=== PATIENT | male | born 1960 | race African-American/Black ===

== ENCOUNTER 2016-05-22 04:48 | Emergency (ER) | payer OTHER ==
[~2016-05-22 04:48] MED LIST: ACETAMINOPHEN PO; ALPRAZOLAM PO; AMLODIPINE BESYL5 MG PO; ASPIRIN EC81 M1 PO; ATARAX PO; AUGMENTIN PO; B12 5,000 MCG1 EACH PO; BACTRIM DS TABL1 TA1 PO; BACTRIM DS TABL1 TAB PO; BENZONATATE PO; BLOOD PRESSURE; CERTAGEN PO; CLARITIN10 M2 PO; DESYREL100 MG PO; ESCITALOPRAM OX10 MG PO; FIORICET 50-321 EACH PO; FISH OIL 1,0001 CAP PO; FLEXERIL10 MG PO; FLOMAX0.4 MG PO; FLONASE16 GM; FOLIC ACID PO; FOLIC ACID1 MG PO; GLUCOPHAGE500 M1 PO; GLUCOPHAGE500 MG PO; GLUCOPHAGE850 MG PO; IBUPROFEN800 MG PO; KEFLEX PO; LEVAQUIN PO; LISINOPRIL PO; LISINOPRIL10 MG PO; LOPRESSOR PO; MAXZIDE 37.5 M1 EACH PO; MEDROL4 MG/DOSE- PO; METFORMIN HCL1000 M1 PO; METFORMIN HCL500 M1 PO; METFORMIN HCL850 MG PO; METFORMIN PO; METOPROLOL SUCC25 MG PO; METOPROLOL TAR25 MG PO; MULTIVITAMINS1 EAC2 PO; NAPROSYN500 MG PO; NEURONTIN300 MG PO; NIFEREX-150150 MG PO; NORCO 5/325 TAB1 TAB PO; NORVASC PO; NORVASC10 MG PO; ORAL DIABETIC MED; OXYCODONE-ACET1 EAC1 PO; OXYCONTIN 20MG20 M1 PO; PERCOCET 10-651 EACH PO; PERCOCET 5-3251 TAB PO; PERCOCET 5/321 UDTAB PO; PERCOCET 51 UDTAB 5/ PO; PERCOCET 7.5-31 EACH PO; PERCOCET PO; PERCOCET10 PO; PERCOCET5/325 PO; PHENERGAN PO; PHENERGAN25 MG PO; PREDNISONE PO; PRILOSEC PO; PROVERA PO; ROXICODONE5 MG PO; SENNA PO; SILVADENE TOP; TOPROL XL50 MG PO; ULTRAM PO; VIT E PO; VOLTAREN75 MG PO; ZITHROMAX1 G/PKT PO; ZITHROMAX500 MG PO; ZOCOR20 MG PO; ZOFRAN ODT4 MG/UDTAB PO; ZOFRAN PO; ZOFRAN2 MG/M1 PO; ZOFRAN8 MG PO; ZOFRANODT PO; [UNRECOGNIZED DRUG - OTHER]; [UNRECOGNIZED DRUG - OTHER]
[2016-05-22 05:12] LABS: BASOPHIL# 0.1 X10e3 (0-0.3); BASOPHIL% 0.6 % (0-2.5); EOSINOPHIL# 0.2 X10e3 (0-0.7); EOSINOPHIL% 1.6 % (0.0-7.0); HEMATOCRIT 33.9 % (38.0-50.0); HEMOGLOBIN 11.3 gm/dL (13.0-16.0); LYMPHOCYTE# 2.1 X10e3 (1.0-3.5); LYMPHOCYTE% 17.6 % (17.0-45.0); MEAN CELL VOLUME 80.9 FL (83-96); MEAN CORPUSCULAR HEMOGLOBIN 26.9 PG (28-34); MEAN CORPUSCULAR HGB CONC 33.3 g/dL (30-36); MEAN PLATELET VOLUME 8.1 FL (6.5-11.5); MONOCYTE% 8.9 % (3.0-12.0); NEUTROPHIL# 8.3 X10e3 (1.5-7.1); NEUTROPHIL% 71.3 % (40-75); PLATELET COUNT 261 X10e3 (140-420); RED BLOOD COUNT 4.19 X10e (3.90-5.60); RED CELL DISTRIBUTION WIDTH 16.7 % (11.0-15.5); RETICULOCYTE 2.8 % (0.5-2.8); WHITE BLOOD COUNT 11.7 X10e3 (4.0-10.5)
[2016-05-22 05:13] LABS: DIFF IND NO
[2016-05-22 05:49] LABS: BLOOD UREA NITROGEN 18 mg/dL (9-23); CARBON DIOXIDE 27 mmol/L (22-31); CHLORIDE 108 mmol/L (100-111); CREATININE SERUM 0.8 mg/dL (0.6-1.4); GLOM FILT RATE Estimated ABOVE60 mL/min (>60); GLUCOSE FASTING 120 mg/dL (70-110); POTASSIUM 3.9 mmol/L (3.5-5.1); SODIUM 142 mmol/L (135-145)
== END 2016-05-22 08:24 | disposition home or self-care (01) ==
LOC: CED 04:48
PROVIDERS: Emergency Medicine
DX: D57.1 Sickle-cell disease without crisis (principal); E11.9 Type 2 diabetes mellitus without complications; I10 Essential (primary) hypertension; Z79.899 Other long term (current) drug therapy
CPT/HCPCS: 36415; 80048; 85025; 85044; 96361; 96374; 96376; 99284; J1170; J1885; J2270

== ENCOUNTER 2016-05-22 09:40 | Emergency (ER) | payer OTHER ==
--- NOTE | ~2016-05-22 | ER ---
Unit #: [id number] #: [id number] Patient: VIVIANA MARQUEZ [id number] [address] [place], [place] [address] [id number] E MR#: [id number] NAME: VIVIANA MARQUEZ ROOM: Sex: M Age: 55 : 1960 Service Date: 05/22/2016 Attending Physician: Kunal Castaneda M.D. Primary Care Physician: No Primary Care Physician EMERGENCY DEPT PHYSICIAN NOTE Please see the written T-sheet from this encounter and the previous encounter on the same date for the full details of the patient's emergency department visit. Mr. Marquez is a 55-year-old man with chronic pain issues, in pain management. 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 Additionally, the patient states a history of sickle cell anemia and has been seen in the past for pain which he attributes to a sickle cell crisis. Reviewing previous records, I shows that the patient has been admitted to our facility multiple times in the past, most often associated with pain related complaints. He has been consulted on by orthopedics, hematology/oncology multiple times in the past. The most recent visit in our system is from January 2016, in which the patient was initially admitted for right hip and right leg pain that he attributed to a sickle cell crisis. According to that discharge summary, hematology/oncology was unconvinced of a sickle cell crisis and felt the pain was more likely related to chronic pain issues associated with his right hip. He was evaluated by orthopedics at that time and followup was supposedly scheduled for the patient. They adjusted his pain medications and he was suitable for discharge. Looking through previous emergency department visits, the patient has been seen multiple times in the past almost exclusively for some pain related complaint. As stated previously, the patient's most recent visit was this morning for a reported sickle cell crisis involving again his chronic right hip pain. The patient was initially evaluated this morning by another provider who cain labs to look for evidence of a sickle cell crisis as well as establish an IV and give the patient saline and two separate doses of IV Dilaudid. Apparently, the previous provider discussed the case with him, assured him that the labs were within normal limits today, and advised him to follow up with his licensed clinician, oncologist as soon as possible while continuing his chronic home pain medication. When the nurse went to discharge the patient, he became very upset stating that his pain had not been adequately treated and managed by the two doses of IV Dilaudid. It was explained to the patient that the provider who had seen him previously had already left and that he was felt, in that physician's opinion, to be suitable for discharge. The patient was very unwilling to accept this stating that he was unable to walk due to his pain and wanted more IV pain medication. They explained to him that that was not possible as his provider was no longer here. However, if he wished to be seen for this issue again, he was welcome to sign into the emergency department for a new visit. Indeed, the patient decided that he wished to be seen again and signed into the emergency department complaining of the same right hip Unit #: [id number] #: [id number] Patient: VIVIANA MARQUEZ pain. I evaluated the patient and discussed the previous visit lab results indicating that it did not appear that the patient was in a sickle cell pain crisis. At this, the patient stated that he wasn't certain that he was in a pain crisis, that he had also mentioned to the triage nurse that he had chronic pain associated with avascular necrosis of his right hip, and he suspected that was probably the reason that he was having so much pain. I reassured the patient that I would be happy to address this complaint by getting an x-ray to assure that there was no new finding or anything concerning that was contributing to an exacerbation of his pain as well as give him additional pain medication. However, I informed the patient, given the labs from the previous visit, and if there were no acute findings on the hip x-ray, that likely this was just an exacerbation of chronic pain and would not be appropriate for admission to this facility. At this, the patient became very agitated and stated that was the only reason that he was here because his pain was so severe that he was having extreme difficulty with walking. However, the patient did note that he walked here from his residence which is close to the hospital as well as being noted by staff members that he was walking around his room without difficulty. I reassured the patient to my commitment to work up his complaint and to treat him with medicines that I thought appropriate for his pain and, at this time, pain medication is ordered as well as an x-ray to address his complaint. He will be re-evaluated after his most recent doses of pain medication but, as I said to the patient, if no new findings exist, he will be referred back to his primary care physician and/or his pain management physician for adjustment of his pain medicines should they deem that appropriate. Dictated by... Natalie Waite/colin TD: 05/22/2016 10:44 JOB #: [id number] EMERGENCY DEPT PHYSICIAN NOTE X Kunal Castaneda MD X EMERGENCY DEPARTMENT REPORT
--- NOTE | ~2016-05-22 | CR151 ---
[facility] A Service of [facility] RADIOLOGY TEXT RESULTS PATIENT: VIVIANA LEE LOCATION: [facility] : 56 UNIT #: [id number] AGE: [address]: Kunal Castaneda MD SEX: M ORDER DR: [id number] [facility] [address] [facility] [place], [place] [address] [id number] E MR#: [id number] Acc #: [id number] NAME: VIVIANA LEE : 1960 SEX: M STUDY DATE/TIME: 05/22/2016 9:34 UNIT: [facility] ROOM: STUDY DESCRIPTION: CR Hip Min 2 Views Rt Attending Physician: Kunal Castaneda M.D. Ordering Physician: Kunal Castaneda M.D. Primary Care Physician: Primary Care Physician No MEDICAL IMAGING REPORT This report is preliminary unless electronic signature is present EXAM Right hip, 05/22/2016 COMPARISON 01/27/2016 HISTORY Pain in right hip for a couple of days. FINDINGS AP and lateral views of the right hip were obtained. There is an AP view of the pelvis as well. There is some sclerosis in the subchondral portions of each hip consistent with avascular necrosis and this was also seen on MRI 01/27/2016. The margins are normal without evidence of collapse. The joint spaces are normal. IMPRESSION Based on the prior MRI, this patient appears to have avascular necrosis of the femoral heads bilaterally and there is stable sclerosis in those regions as compared with the study in January. There is no collapse or loss of the joint space at this time. Otherwise the study is normal. Dictated by... Eric Curry M.D. THIS IS AN ELECTRONICALLY VERIFIED REPORT Eric Curry M.D. at 05/22/2016 12:18 PM LETY/brittney TD: 05/22/2016 11:05 JOB #: [id number] [facility] A Service [facility] RADIOLOGY TEXT RESULTS PATIENT: VIVIANA LEE LOCATION: [facility] : 56 UNIT #: [id number] AGE: [address]: Kunal Castaneda MD SEX: M ORDER DR: MEDICAL IMAGING REPORT COPY
== END 2016-05-22 10:43 | disposition home or self-care (01) ==
LOC: CED 09:40
DX: G89.29 Other chronic pain (principal); M25.551 Pain in right hip; E11.9 Type 2 diabetes mellitus without complications; I10 Essential (primary) hypertension; Z79.899 Other long term (current) drug therapy
CPT/HCPCS: 73502; 96372; 99283

== ENCOUNTER 2016-06-17 09:16 | Emergency (ER) | payer OTHER ==
[2016-06-17 10:32] LABS: BASOPHIL# 0.1 X10e3 (0-0.3); DIFF IND NO; EOSINOPHIL# 0.2 X10e3 (0-0.7); EOSINOPHIL% 1.9 % (0.0-7.0); HEMATOCRIT 34.7 % (38.0-50.0); HEMOGLOBIN 11.6 gm/dL (13.0-16.0); LYMPHOCYTE# 3.3 X10e3 (1.0-3.5); LYMPHOCYTE% 25.1 % (17.0-45.0); MEAN CORPUSCULAR HEMOGLOBIN 26.8 PG (28-34); MEAN CORPUSCULAR HGB CONC 33.5 g/dL (30-36); MEAN PLATELET VOLUME 8.3 FL (6.5-11.5); MONOCYTE# 1.2 X10e3 (0-1.0); MONOCYTE% 9.5 % (3.0-12.0); NEUTROPHIL# 8.1 X10e3 (1.5-7.1); NEUTROPHIL% 62.5 % (40-75); PLATELET COUNT 277 X10e3 (140-420); RED BLOOD COUNT 4.34 X10e (3.90-5.60); RED CELL DISTRIBUTION WIDTH 17.2 % (11.0-15.5); RETICULOCYTE 3.8 % (0.5-2.8)
[2016-06-17 11:00] LABS: ALBUMIN SERUM 4.6 g/dL (3.5-5.0); BILIRUBIN,TOTAL 1.1 mg/dL (0.2-2.0); CREATININE SERUM 0.8 mg/dL (0.6-1.4); POTASSIUM 4.1 mmol/L (3.5-5.1); PROTEIN TOTAL SERUM 7.7 g/dL (6.0-8.3)
== END 2016-06-17 13:21 | disposition home or self-care (01) ==
LOC: CED 09:16
PROVIDERS: Nurse Practitioner
DX: D57.00 Hb-SS disease with crisis, unspecified (principal); M25.512 Pain in left shoulder; I10 Essential (primary) hypertension; E11.9 Type 2 diabetes mellitus without complications; Z87.891 Personal history of nicotine dependence
CPT/HCPCS: 36415; 80053; 85025; 85044; 96361; 96374; 96375; 96376; 99284; J1170; J1885; J2405

== ENCOUNTER 2016-06-23 13:17 | Inpatient (IN) | payer OTHER ==
--- NOTE | ~2016-06-23 | DS ---
Unit #: [id number] #: [id number] Patient: VIVIANA LEE [id number] [address] [address] [id number] I MR#: [id number] NAME: VIVIANA LEE ROOM: [facility] Age: 55 Sex: M Admission Date: 06/23/2016 : 1960 Discharge Date: 07/01/2016 Attending Physician: Bj Larson M.D. Primary Care Physician: Guy Hawkins M.D. DISCHARGE SUMMARY DISCHARGE DIAGNOSES 1. Sickle cell pain crisis. 2. Community-acquired pneumonia. 3. Sepsis. 4. Type 2 diabetes. 5. Acute hypoxic respiratory failure. HOSPITAL COURSE The patient is a 55-year-old male with sickle cell, who presented to [facility] Emergency Department on the with complaint of low-back pain. He was noted to have oxygen saturations in the 80s as well. The patient was started on IV pain medication and then oral medications were added for his sickle cell pain crisis. IV antibiotics and oxygen for his pneumonia were started as well. The patient's procalcitonin was followed and when it dropped and the patient seemed to no longer benefit from antibiotics. These were stopped. Pain medication continued for his sickle cell crisis, however. Over the course of the hospitalization, the patient's hemoglobin fell from 11.7 to 8.6. His reticulocyte count was initially measured at 4.9 but was 7 the day prior to discharge. Given improvement of his hemoglobin and increase of his reticulocyte count, the patient has been deemed appropriate for discharge. The patient states his pain has improved. DISCHARGE MEDICATIONS 1. Glucophage 850 mg p.o. daily. 2. Norvasc 10 mg daily. 3. Metoprolol tartrate 50 mg p.o. daily. 4. Ibuprofen 800 mg p.o. b.i.d. as needed for pain. 5. Percocet 10/325 as needed. FOLLOWUP The patient should followup with his primary care provider at the earliest available appointment. Dictated by... Bj Larson M.D. [facility]/ Unit #: [id number] #: [id number] Patient: VIVIANA LEE TD: 07/02/2016 09:57 JOB #: [id number] DISCHARGE SUMMARY Page 1 of 1 X Bj Larson MD DISCHARGE SUMMARY
--- NOTE | ~2016-06-23 | CO ---
Unit #: [id number] #: [id number] Patient: VIVIANA MARQUEZ [id number] [address] [address] [id number] I MR#: [id number] NAME: VIVIANA MARQUEZ ROOM: 324 Age: 55 Sex: M Admission Date: 06/23/2016 : 1960 Attending Physician: Bj Larson M.D. Primary Care Physician: Guy Hawkins M.D. Consultation Date: 06/24/2016 CONSULTATION REPORT HISTORY OF PRESENT ILLNESS Viviana Marquez is a 55-year-old male, admitted to the emergency room with a chief complaint of dyspnea and chest pain. The patient has a history of sickle cell anemia and was doing well until about a week prior to admission when he noted onset of progressively worsening shortness of breath, diffuse pain to the anterior chest, and mild nonproductive cough. He denied fever, chills, or hemoptysis. He presented to the emergency room on 06/23/2016 with [address] A CT scan of his chest was done that showed bilateral densities, primarily linear in the lne-ah-eoxyt lung zones consistent either with atelectasis or pneumonia. He was admitted with sickle cell crisis and acute chest syndrome. Since admission, his highest temperature has been 99.4. PAST MEDICAL HISTORY Remarkable for hypertension, diabetes mellitus, dyslipidemia, sickle cell disease, and a previous cerebrovascular accident. PAST SURGICAL HISTORY Back surgery on his lower spine, incision and drainage of perirectal abscess, bilateral shoulder surgery, and circumcision. SOCIAL HISTORY The patient lives alone. Smokes about one-half pack of cigarettes daily. Denied alcohol or drug abuse. FAMILY HISTORY Remarkable for hypertension and diabetes. ALLERGIES None. HOME MEDICATIONS Include metformin, ibuprofen, Percocet, Norvasc, and metoprolol. REVIEW OF SYSTEMS GENERAL: He denied fever, chills, or recent change in weight. ENT: Denied nasal or sinus congestion or epistaxis. NECK: No pain in cervical spine. No thyroid enlargement. PULMONARY: Anterior chest discomfort and dyspnea. Nonproductive cough. CARDIOVASCULAR: Denied midsternal chest pain, ankle edema, or orthopnea. GI: Denied nausea, vomiting, or diarrhea. Unit #: [id number] #: [id number] Patient: VIVIANA MARQUEZ : Denied dysuria or hematuria. SKIN: No rash or nodules. LYMPH: No adenopathy in the neck, cervical, or axillary areas. NEUROLOGIC: No loss of consciousness, seizures, or syncope. ENDOCRINE: Denied cold intolerance, polyuria, or polydipsia. PHYSICAL EXAMINATION GENERAL: He appeared obese black male, in mild distress. VITAL SIGNS: On admission, temperature 97.6, pulse 86, respirations 24, and blood pressure was 178/78. In the emergency department, his oxygen saturations has dropped into the 80s and he was placed on oxygen. HEENT: Head, normocephalic without evidence of trauma. Eyes; pupils are equal, round, and reactive to light and accommodation. Sclerae anicteric. Conjunctivae normal. Ear, nose, and throat; nostrils open and patent. Tympanic membranes appeared normal. Oral cavity is unremarkable. No thrush. NECK: Supple without adenopathy or jugular venous distention. LUNGS: Clear to auscultation and percussion. CARDIAC: PMI poorly localized. Heart sounds distant. No murmurs or gallops. ABDOMEN: Soft, nontender, and obese. No hepatosplenomegaly or masses. Bowel sounds normal. GENITALIA: Normal male. RECTAL: Deferred. EXTREMITIES: without clubbing, cyanosis, or edema. SKIN: Warm and dry with normal capillary refill. LYMPH: No adenopathy in neck, cervical, or axillary areas. PSYCH: Awake, alert, oriented x3. He did not seem particularly anxious or depressed. MUSCULOSKELETAL: Equal muscular development bilaterally. No joint swelling or erythema. Strength not tested. NEUROLOGIC: Cranial nerves II through XII intact. Sensory normal to pinprick and touch. Deep tendon reflexes were 1+ in both upper and lower extremities. Babinski negative. DIAGNOSTIC STUDIES LABORATORY RESULTS: On admission, his white blood cell count elevated at 18,700, hemoglobin 11.7 g, and hematocrit 36%. INR 1. Lactic acid borderline elevated at 2.5. IMPRESSION 1. Sickle cell crisis. 2. Acute chest syndrome with low-grade fever and pulmonary infiltrates on chest x-ray, dyspnea, and hypoxemia. 3. Elevated lactate, possible sepsis. 4. Hypertension. 5. Diabetes mellitus. RECOMMENDATIONS Agree with antibiotics. Suggest azithromycin, cefepime, oxygen, and incentive spirometry. Check of blood gases would be appropriate. Further recommendations to follow. Dictated by... Natalie Mauricio/irma TD: 06/25/2016 17:23 Unit #: [id number] #: [id number] Patient: VIVIANA MARQUEZ JOB #: [id number] CONSULTATION REPORT Page 1 of 1 X Pepe Rivera MD X CONSULTATION REPORT
--- NOTE | ~2016-06-23 | EKG ---
PATIENT: VIVIANA LEE UNIT #: [id number] Ventricular Rate: 89 BPM Atrial Rate: 89 BPM P-R Interval: 190 ms QRS Duration: 100 ms Q-T Interval: 394 ms QTC Calculation(Bezet): 479 ms P [place]: 56 degrees Calculated R [place]: -26 degrees Calculated T [place]: -61 degrees Diagnosis Line: Normal sinus rhythm Diagnosis Line: ST and T wave abnormality, consider anterolateral Diagnosis Line: ischemia Diagnosis Line: Prolonged QT Diagnosis Line: Abnormal ECG Diagnosis Line: When compared with ECG of 29-APR-2015 12:21, Diagnosis Line: Inverted T waves have replaced nonspecific T wave Diagnosis Line: abnormality in Lateral leads Diagnosis Line: Confirmed by PAOLA CHAVEZ MD ([id number]) on 06/26/2016 Diagnosis Line: 10:51:09 PM INTERPRETING MD: KATHY DRAKE
--- NOTE | ~2016-06-23 | HP ---
Unit #: [id number] #: [id number] Patient: VIVIANA LEE [id number] [address] [place], [place] [address] [id number] I MR#: [id number] NAME: VIVIANA LEE ROOM: [address] Age: 55 Sex: M Admission Date: 06/23/2016 : 1960 Attending Physician: Bj Larson M.D. Primary Care Physician: Guy Hawkins M.D. HISTORY AND PHYSICAL CHIEF COMPLAINT Low back pain. HISTORY OF PRESENT ILLNESS The patient is a 55-year-old male with past medical history of chronic pain, sickle cell disease, avascular necrosis of the shoulders and hip, cerebrovascular accident, hypertension, diabetes and BPH who presented to the emergency department for evaluation of the above. The patient states that he was in his usual state of health until this morning around 2 a.m. when he woke from sleep with worsening low back pain. He states the pain is in his lower back. He describes it as "sharp." It radiates to his hips. He states that it is similar to when he has had a pain crisis in the past. He denies any fever. He has not had any cough. He has had some shortness of breath. He denies any abdominal pain. He states that his appetite has been good. He has had one bout of vomiting but no diarrhea. He denies any bowel or bladder incontinence. No (1) . Upon arrival in the emergency department, the patient's oxygen saturation was 100% on room air. Oxygen saturation apparently dropped to the 80s during the course of his evaluation in the emergency department. Chest x-ray showed bibasilar atelectasis versus infiltrate. CT of the chest PE protocol was limited due to poor bolus timing and other factors but showed no central PE. There are patchy densities concerning for atelectasis versus infiltrate. Lactic acid is 2.5. Reticulocyte count is 4.9. Hemoglobin and hematocrit are 11.7 and 36 respectively. He was given vancomycin, Zosyn and tobramycin in the emergency department, as well as a total of 12 mg of Dilaudid, 1 mg of Ativan and 25 mg of Benadryl. He was also given a 2 liter normal saline bolus. He is being admitted to [facility] for evaluation and further treatment. PAST MEDICAL HISTORY 1. Admission to [facility] February 10 through February 15, 2016 for pain and possible sickle cell crisis. He was seen by hematology who did not think that the pain was attributed to sickle cell crisis. He was also seen by the orthopedic service that recommended outpatient followup. 2. Sickle cell anemia. The patient has seen Dr. Barry in the past but was unable to tell me who he sees as an outpatient. 3. Avascular necrosis involving bilateral shoulders, as well as bilateral femoral heads. 4. History of cerebrovascular accident with right hemianopsia and memory issues. Unit #: [id number] #: [id number] Patient: VIVIANA LEE 5. Hypertension. 6. Diabetes. 7. BPH. PAST SURGICAL HISTORY 1. Back surgery. 2. Incision and drainage of perirectal abscess. 3. Bilateral shoulder surgery. 4. Circumcision. SOCIAL HISTORY The patient lives alone. He smokes a few cigarettes daily. He denies alcohol or illicit drug use. He is on disability. FAMILY HISTORY Hypertension, diabetes. ALLERGIES None. HOME MEDICATIONS 1. Metformin 850 mg daily. 2. Ibuprofen 800 mg b.i.d. p.r.n. 3. Percocet 10 daily p.r.n. 4. Norvasc 10 mg daily. 5. Metoprolol 50 mg daily. REVIEW OF SYSTEMS A complete review of systems is negative except as indicated in the HPI. The patient states that he is in the process of seeing pain management. He was unable to tell me the name of the pain management physician. The patient does not routinely check his blood sugar. PHYSICAL EXAMINATION VITAL SIGNS: Temperature is 97.6, pulse 86, respirations 24, blood pressure 178/78, oxygen saturation 100% on room air, but as stated above, the patient's oxygen saturation dropped to the 80s during the course of his evaluation in the emergency department. GENERAL: The patient is an male who is awake and alert in no acute distress. He apparently was quite agitated on initial presentation. HEENT: The head is atraumatic. Mucous membranes are moist. NECK: Supple. Trachea is midline. CARDIOVASCULAR: Regular rate and rhythm. RESPIRATORY: Lungs are relatively clear to auscultation bilaterally with no increased work of breathing. ABDOMEN: Soft, nontender with bowel sounds present in all 4 quadrants. EXTREMITIES: Extremities are nontender with no pedal edema. NEUROLOGIC: The patient is awake and alert. He is oriented x3. He follows commands. PSYCHIATRIC: Mood and affect are normal. The patient is cooperative but apparently was agitated earlier. SKIN: Skin of examined areas is warm and dry. DIAGNOSTIC TESTS CARDIOVASCULAR: EKG shows normal sinus rhythm with a rate of 89 beats per minute. There are T wave inversions in leads V3 through V6. Unit #: [id number] #: [id number] Patient: VIVIANA LEE IMAGING: Chest x-ray shows bibasilar atelectasis versus infiltrate. CT of the chest PE protocol is limited due to multiple factors, including poor bolus timing. There is no central PE, but there are patchy densities concerning for atelectasis versus infiltrate. LABORATORY: Complete blood count notable for white blood cell count of 18.7, hemoglobin 11.7, hematocrit 36. INR is 1. Comprehensive metabolic panel notable for glucose of 246. Urinalysis notable for 250 glucose. Troponin less than 0.05. Lactic acid is 2.5. Reticulocyte count is 4.9. ASSESSMENT 1. The patient is a 55-year-old male with acute respiratory failure, hypoxic. 2. Pneumonia, community acquired. 3. The patient received vancomycin, Zosyn and tobramycin in the emergency department. 4. Sepsis with a lactic acid of 2.5. 5. Intractable pain possibly related to sickle cell crises versus avascular necrosis of hips. 6. History of sickle cell anemia. Hemoglobin is 11.7 today. It was 11.6 on June 17, 2016. Reticulocyte count is 4.9. 7. Avascular necrosis of the hips and shoulders. 8. History of cerebrovascular accident. 9. Hypertension. 10. Uncontrolled diabetes. 11. BPH. 12. Tobacco abuse. PLAN 1. Admit to intermediate level. 2. Healthy heart, consistent carb diet. 3. Normal saline at 150 mL an hour. 4. Supplemental oxygen. 5. Blood cultures x2. 6. Sputum culture and sensitivity. 7. Procalcitonin level. 8. Rocephin IV and azithromycin IV for possible pneumonia pending Dr. El's recommendations. 9. DuoNeb p.r.n. 10. Sepsis protocol with repeat lactic acid. 11. Dilaudid p.r.n. 12. Zofran p.r.n. 13. Tylenol p.r.n. 14. Serial cardiac enzymes. 15. VQ scan in the morning due to suboptimal CT of the chest PE protocol. 16. Hemoglobin A1C. 17. Low-dose sliding scale insulin with Accu-Cheks. 18. Recheck folic acid. 19. Repeat labs in the morning, including reticulocyte count. 20. SCDs for DVT prophylaxis. 21. Additional workup and consultants based on above. 22. Regarding code status, the patient is a full code. Dictated by Kari Ortiz M.D. Unit #: [id number] #: [id number] Patient: VIVIANA LEE VIRAL/beth TD: 06/24/2016 07:30 JOB #: [id number] HISTORY AND PHYSICAL Page 1 of 1 X Kari Ortiz MD X HISTORY AND PHYSICAL
--- NOTE | ~2016-06-23 | CR72 ---
[facility] A Service of [facility] & [facility] RADIOLOGY TEXT RESULTS PATIENT: VIVIANA LEE LOCATION: [facility] 324-01 : 56 UNIT #: [id number] AGE: [address]: Bj Larson MD SEX: M ORDER DR: [id number] [facility] [address] [facility]. [place], [place] [address] [id number] I MR#: [id number] Acc #: [id number] NAME: VIVIANA LEE : 1960 SEX: M STUDY DATE/TIME: 06/23/2016 13:08 UNIT: [facility] ROOM: [address] STUDY DESCRIPTION: CR Chest Single View Portable Attending Physician: Bj Larson M.D. Ordering Physician: Ada Johnson M.D. Primary Care Physician: Guy Hawkins M.D. MEDICAL IMAGING REPORT This report is preliminary unless electronic signature is present EXAM Single view of the chest INDICATION Chest pain for 1 day. Shortness of air . FINDINGS Single portable AP view of the chest is compared to 09/24/2015. Cardiac size is enlarged. There is increased density in both lung bases which probably represents some atelectasis. No pleural effusion. There is degenerative changes about both shoulders. IMPRESSION 1. Linear airspace opacities in both lung bases probably represent atelectasis. Correlate for any evidence of pneumonia. 2. Stable cardiomegaly. 1. Dictated by... Damian Patel M.D. THIS IS AN ELECTRONICALLY VERIFIED REPORT Damian Patel M.D. at 06/25/2016 2:15 PM Yanira TD: 06/24/2016 09:18 JOB #: [id number] MEDICAL IMAGING REPORT Page 1 of 1 COPY
--- NOTE | ~2016-06-23 | CO ---
Unit #: [id number] #: [id number] Patient: VIVIANA LEE [id number] [address] [address] [id number] I MR#: [id number] NAME: VIVIANA LEE ROOM: 324 Age: 55 Sex: M Admission Date: 06/23/2016 : 1960 Attending Physician: Bj Larson M.D. Primary Care Physician: Guy Hawkins M.D. CONSULTATION REPORT CHIEF COMPLAINT Sickle cell disease, bilateral lower extremity pain, avascular necrosis of bilateral femoral heads, CVA, memory problems. HISTORY OF PRESENT ILLNESS This is a 55-year-old male who has sickle cell disease. His hemoglobin has been stable. He had a CVA and he has memory problems. Today, patient came with bilateral lower extremity severe pain. Patient had a CT of the chest, PE protocol, on June 23, 2016, and there was no PE. However, there are some patchy infiltrates bilaterally which could be atelectasis or could be pneumonia. He is receiving pain medication and IV fluids and is feeling better. His antibiotics have been discontinued. His CBC showed a WBC of 18.7, hemoglobin 11.7, MCV 81, and platelets 294,000. His creatinine is 0.8. LFTs are normal. At present, he still complains of bilateral lower extremity pain. He is uncomfortable. PAST MEDICAL HISTORY 1. Sickle cell disease well controlled on folic acid supportive care. 2. Hypertension. 3. Cerebrovascular accident during 2012 and 2013 and has significant memory problems, but according to him, he is improving. 4. Back pain. PAST SURGICAL HISTORY Back surgery and some shoulder surgery. His memory is poor, and he could not recollect. ALLERGIES None. SOCIAL HISTORY He smoked one pack per day for 20 years but quit many years ago. He denies alcohol abuse. FAMILY HISTORY Negative for cancer. CURRENT MEDICATIONS 1. Dilaudid. 2. Percocet. 3. Flomax. Unit #: [id number] #: [id number] Patient: VIVIANA LEE 4. Insulin. 5. IV fluid. 6. Lopressor. 7. Norvasc. 8. Folic acid. 9. B12. PHYSICAL EXAMINATION VITAL SIGNS: Temperature 100.2, pulse 104, respiratory rate 18, O2 saturation on 2 liters 96%, and blood pressure 143/92. GENERAL: Patient is comfortable. ECOG is 0. The patient is pleasant. HEENT: Moist mucosa. Pupils equally reactive to light. Extraocular muscles intact. Sclerae anicteric. No obvious bleeding from nasal mucosa or oral mucosa. Scalp normal. Hearing normal. NECK: No JVD. No lymphadenopathy. LYMPHATIC/HEMATOLOGIC: There is no palpable adenopathy in the neck, axilla or inguinal area. CARDIOVASCULAR: S1, S2. Regular rate and rhythm. No S3 or S4. RESPIRATORY: Chest symmetrical, normal. Clear to auscultation bilaterally. No wheezes, no rales, no rhonchi. No dullness to percussion. ABDOMEN/GASTROINTESTINAL: Abdomen is soft, nontender, nondistended. No hepatosplenomegaly. EXTREMITIES: There is no clubbing, no cyanosis, no edema. No varicose veins. NEUROLOGICAL: Patient is alert, awake and oriented x3. Cranial nerves II-XII are intact. Sensory grossly intact. Motor is 4/5 in all four extremities. Gait is normal. Station is normal. Language is normal. Memory is normal. DTRs +2 in all four extremities. MUSCULOSKELETAL: No joint swelling. No bony tenderness. No muscle tenderness. SKIN: No petechiae, no rash, no ecchymosis. PSYCHIATRIC: No anxiety. No delusions or hallucinations. There is no agitation. Eye contact is normal. Affect is appropriate. There is no flight of ideas. DIAGNOSTIC STUDIES LABORATORY: As mentioned above. IMAGING: As mentioned above. ASSESSMENT AND PLAN This is a 55-year-old male who has the following active issues: 1. Sickle cell disease. This has been well controlled. He has not had any recent packed red blood cell transfusions. Will continue folic acid and B12. Will check iron studies. 2. Pain. He has significant bilateral lower extremity pain. Patient is having mild crisis and is receiving pain medication including Dilaudid, Percocet, and IV fluids. DISCUSSION Patient has some patchy infiltrates. This could be atelectasis. He is off antibiotics. Will simply monitor. Dictated by... Natalie Velásquez Unit #: [id number] #: [id number] Patient: VIVIANA LEE TD: 06/25/2016 15:43 JOB #: [id number] CONSULTATION REPORT Page 1 of 1 X Shannan Barry MD CONSULTATION REPORT
--- NOTE | ~2016-06-23 | CT16 ---
[facility] A Service of [facility] RADIOLOGY TEXT RESULTS PATIENT: VIVIANA LEE LOCATION: [facility] 324-01 : [birth year] UNIT #: [id number] AGE: [address]: Bj Larson MD SEX: M ORDER DR: [id number] [facility] [address] [place], [place] [address] [id number] I MR#: [id number] #: [id number] NAME: VIVIANA LEE : 1960 SEX: M STUDY DATE/TIME: 06/23/2016 17:13 UNIT: CEDOF ROOM: [id number] STUDY DESCRIPTION: CT Angio Chest for PE Attending Physician: Bj Larson M.D. Ordering Physician: Ada Johnson M.D. Primary Care Physician: Guy Hawkins M.D. MEDICAL IMAGING REPORT This report is preliminary unless electronic signature is present EXAM CT angiography chest for PE. HISTORY Short of air. Back pain radiating down legs. No known injury. Nausea vomiting, substernal chest pain since 06:[address] exam was performed with one or more of the following radiation dose reduction techniques: automatic exposure control, adjustment of mA and/or kV according to patient size, and iterative reconstruction. FINDINGS CT pulmonary angiography performed with intravenous administration of 80 mL Isovue-370. Three dimensional reconstructions were performed through the pulmonary arteries. Visualized thyroid unremarkable. No axillary adenopathy. No mediastinal or hilar adenopathy. Mild cardiac enlargement. No pleural effusions. Visualized portions of liver, gallbladder, spleen, pancreas, adrenal glands, kidneys notable for left upper pole renal cysts largest measuring up to 3.9 cm in diameter. No upper abdominal adenopathy. Esophagus, visualized portions of the stomach, small bowel and colon unremarkable. Pulmonary parenchyma imaged during the excretory phase of respiration given tracheal contour. Patchy and linear densities in the bilateral ozf-dx-fockl lung zones, right greater than left overall probably represent atelectasis to a large degree, given the expiratory phase imaging. Components of pneumonitis could be considered. No dense airspace consolidation is seen. No suspicious nodule. Due to timing of the contrast bolus relative to image acquisition, respiratory motion, and expiratory phase imaging, the study is markedly suboptimal for assessment of pulmonary arteries. No central pulmonary STS. [facility] A Service of [facility] RADIOLOGY TEXT RESULTS PATIENT: VIVIANA LEE LOCATION: [facility] 324-01 : [birth year] UNIT #: [id number] AGE: [address]: Bj Larson MD SEX: M ORDER DR: emboli are suggested. The proximal lobar pulmonary arteries show no indication of pulmonary embolus. From level of the segmental pulmonary arteries distally, the study is nondiagnostic. No aortic aneurysm or dissection. The great vessel origins are patent. Bony structures show no acute abnormality. Degenerative changes in the spine. IMPRESSION 1. Due to timing contrast bolus relative to image acquisition, respiratory motion artifact, and expiratory phase imaging, the study is markedly limited for assessment of pulmonary arteries. There is no indication of central pulmonary emboli to the level of the lobar arteries; but beyond the level of the lobar arteries including the segmental and subsegmental pulmonary arteries presence or absence of pulmonary emboli cannot be determined on basis of this examination. If the patient is a candidate for additional iodinated contrast material, repeat examination could be considered. Alternatively ventilation-perfusion radionuclide lung scan could be considered. 2. No aortic aneurysm or dissection. 3. As noted, images were obtained in the excretory phase of respiration. Patchy and linear densities in the gyf-ch-gkckv lung zones bilaterally right greater than left probably reflect a significant amount of atelectasis due to the expiratory phase imaging. I cannot exclude components of pneumonitis bilaterally. No dense airspace consolidation. 4. No pleural effusion or pneumothorax. 5. Mild cardiac enlargement. 6. Visualized upper abdomen notable for left renal cyst. Dictated by... Riaz Harrington M.D. THIS IS AN ELECTRONICALLY VERIFIED REPORT Riaz Harrington M.D. at 06/26/2016 6:09 PM Blas TD: 06/24/2016 13:11 JOB #: [id number] MEDICAL IMAGING REPORT Page 1 of 1 COPY
[2016-06-23 12:51] LABS: BASOPHIL# 0.1 X10e3 (0-0.3); BASOPHIL% 0.6 % (0-2.5); DIFF IND YES; EOSINOPHIL# 0.2 X10e3 (0-0.7); EOSINOPHIL% 0.8 % (0.0-7.0); HEMOGLOBIN 11.7 gm/dL (13.0-16.0); LYMPHOCYTE# 4.4 X10e3 (1.0-3.5); LYMPHOCYTE% 23.4 % (17.0-45.0); MEAN CELL VOLUME 81.9 FL (83-96); MEAN CORPUSCULAR HEMOGLOBIN 26.7 PG (28-34); MEAN CORPUSCULAR HGB CONC 32.6 g/dL (30-36); MEAN PLATELET VOLUME 8.3 FL (6.5-11.5); MONOCYTE# 1.5 X10e3 (0-1.0); MONOCYTE% 8.1 % (3.0-12.0); NEUTROPHIL# 12.5 X10e3 (1.5-7.1); NEUTROPHIL% 67.1 % (40-75); PLATELET COUNT 294 X10e3 (140-420); RED BLOOD COUNT 4.39 X10e (3.90-5.60); RED CELL DISTRIBUTION WIDTH 17.6 % (11.0-15.5); RETICULOCYTE 4.9 % (0.5-2.8); WHITE BLOOD COUNT 18.7 X10e3 (4.0-10.5)
[2016-06-23 13:00] LABS: PARTIAL THROMBOPLASTIN TIME 21.2 SECONDS (23.5-31.3); PROTHROMBIN TIME (PATIENT) 10.6 SECONDS (9.6-11.5)
[2016-06-23 13:08] LABS: NUCLEATED RED BLOOD CELL 2 /100 (0)
[2016-06-23 13:09] LABS: PLATELET ESTIMATE NORMAL (NORMAL); TARGET CELLS SL
[2016-06-23 13:24] LABS: ALBUMIN SERUM 4.6 g/dL (3.5-5.0); BILIRUBIN, DIRECT 0.2 mg/dL (0.0-0.2); BILIRUBIN,INDIRECT 1.2 mg/dL (0.0-0.9); BILIRUBIN,TOTAL 1.4 mg/dL (0.2-2.0); BUN/CREATININE RATIO 17.5; CALCIUM SERUM 9.5 mg/dL (8.4-10.2); CREATININE SERUM 0.8 mg/dL (0.6-1.4); POTASSIUM 3.5 mmol/L (3.5-5.1); PROTEIN TOTAL SERUM 7.9 g/dL (6.0-8.3)
[2016-06-23 14:29] LABS: URINE SOURCE CLEAN CATCH
[2016-06-23 14:41] LABS: URINE APPEARANCE CLEAR; URINE BILIRUBIN NEG (NEG); URINE BLOOD NEG (NEG); URINE COLOR YELLOW; URINE GLUCOSE 250 MG/DL (NEG); URINE KETONE NEG (NEG); URINE LEUKOCYTE ESTERASE NEG (NEG); URINE NITRATE NEG (NEG); URINE PROTEIN NEG (NEG); URINE SPECIFIC GRAVITY 1.015 (1.003-1.035)
[2016-06-23 14:50] LABS: CULTURE INDICATED? NO
[2016-06-23 16:54] LABS: POC - CKMB 2.6 ng/mL (0.0-7.9); POC - TROPONIN <0.05 ng/mL (<=0.05)
[2016-06-23] MEDS ORDERED: IBUPROFEN800 MG PO (17:51)
[2016-06-23] MEDS ORDERED: GLUCOPHAGE850 MG PO (17:51)
[2016-06-23] MEDS ORDERED: PERCOCET PO (17:53)
[2016-06-23] MEDS ORDERED: NORVASC10 MG PO (17:53)
[2016-06-23] MEDS ORDERED: METOPROLOL TART25 MG PO (17:54)
[2016-06-23 19:22] LABS: POC - CKMB 2.3 ng/mL (0.0-7.9); POC - TROPONIN <0.05 ng/mL (<=0.05)
[2016-06-23 22:00] LABS: %MB 1.5 % (0.0-4.0); MB 4.7 ng/ml
[2016-06-24 11:46] LABS: %MB 0.8 % (0.0-4.0); MB 4.3 ng/ml
[2016-06-25 09:20] LABS: ARTERIAL BLD GAS O2 SATURATION 92.5 % (90.0-100.0); ARTERIAL BLOOD GAS CARBOXY HB 1.8 %sat (0.0-9.0); ARTERIAL BLOOD GAS HCO3 27.7 mmol/L; ARTERIAL BLOOD GAS PCO2 42.2 mmHg (35.0-45.0); ARTERIAL BLOOD GAS PO2 65.2 mmHg (80.0-100); ARTERIAL BLOOD GAS pH 7.426 (7.350-7.450)
[2016-06-25 09:21] LABS: ARTERIAL BLOOD GAS ALLEN TEST NORMAL; ARTERIAL BLOOD GAS ART SITE RIGHT RADIAL; ARTERIAL BLOOD GAS DELIVERY NASAL CANNULA; ARTERIAL BLOOD GAS MET HB 1.1 %sat (0.0-2.0); ARTERIAL DRAW? YES
[2016-06-26 08:11] LABS: HEMATOCRIT 26.5 % (38.0-50.0); HEMOGLOBIN 9.1 gm/dL (13.0-16.0); MEAN CELL VOLUME 78.1 FL (83-96); MEAN CORPUSCULAR HEMOGLOBIN 26.9 PG (28-34); MEAN CORPUSCULAR HGB CONC 34.5 g/dL (30-36); MEAN PLATELET VOLUME 8.2 FL (6.5-11.5); RED BLOOD COUNT 3.39 X10e (3.90-5.60)
[2016-06-26 08:57] LABS: ALBUMIN SERUM 3.6 g/dL (3.5-5.0); BILIRUBIN,TOTAL 1.9 mg/dL (0.2-2.0); BUN/CREATININE RATIO 21.66; CALCIUM SERUM 8.4 mg/dL (8.4-10.2); CREATININE SERUM 0.6 mg/dL (0.6-1.4); GLOM FILT RATE Estimated 129.4 mL/min (>60); MAGNESIUM 1.7 mg/dL (1.6-3.0); POTASSIUM 3.5 mmol/L (3.5-5.1); PROTEIN TOTAL SERUM 6.6 g/dL (6.0-8.3)
[2016-06-26 09:03] LABS: FERRITIN 560 ng/mL (24-336)
[2016-06-27 07:05] LABS: HEMATOCRIT 26.2 % (38.0-50.0); HEMOGLOBIN 8.8 gm/dL (13.0-16.0); MEAN CELL VOLUME 79.8 FL (83-96); MEAN CORPUSCULAR HEMOGLOBIN 26.8 PG (28-34); MEAN CORPUSCULAR HGB CONC 33.6 g/dL (30-36); MEAN PLATELET VOLUME 8.2 FL (6.5-11.5); RED BLOOD COUNT 3.29 X10e (3.90-5.60); RED CELL DISTRIBUTION WIDTH 18.1 % (11.0-15.5); WHITE BLOOD COUNT 13.8 X10e3 (4.0-10.5)
[2016-06-27 08:01] LABS: ALBUMIN SERUM 3.6 g/dL (3.5-5.0); BILIRUBIN,TOTAL 1.8 mg/dL (0.2-2.0); CALCIUM SERUM 8.9 mg/dL (8.4-10.2); CREATININE SERUM 0.7 mg/dL (0.6-1.4); GLOM FILT RATE Estimated 121.5 mL/min (>60); MAGNESIUM 1.8 mg/dL (1.6-3.0); POTASSIUM 3.6 mmol/L (3.5-5.1); PROTEIN TOTAL SERUM 6.4 g/dL (6.0-8.3)
[2016-06-28 05:53] LABS: HEMATOCRIT 25.7 % (38.0-50.0); HEMOGLOBIN 8.6 gm/dL (13.0-16.0); MEAN CORPUSCULAR HEMOGLOBIN 26.8 PG (28-34); MEAN CORPUSCULAR HGB CONC 33.6 g/dL (30-36); MEAN PLATELET VOLUME 7.9 FL (6.5-11.5); RED BLOOD COUNT 3.21 X10e (3.90-5.60); RED CELL DISTRIBUTION WIDTH 17.9 % (11.0-15.5); WHITE BLOOD COUNT 13.8 X10e3 (4.0-10.5)
[2016-06-28 06:34] LABS: ALBUMIN SERUM 3.5 g/dL (3.5-5.0); BILIRUBIN,TOTAL 1.7 mg/dL (0.2-2.0); BUN/CREATININE RATIO 18.33; CALCIUM SERUM 8.5 mg/dL (8.4-10.2); CREATININE SERUM 0.6 mg/dL (0.6-1.4); GLOM FILT RATE Estimated 129.4 mL/min (>60); MAGNESIUM 1.8 mg/dL (1.6-3.0); POTASSIUM 3.6 mmol/L (3.5-5.1); PROTEIN TOTAL SERUM 6.3 g/dL (6.0-8.3)
[2016-06-29 05:55] LABS: HEMATOCRIT 27.2 % (38.0-50.0); HEMOGLOBIN 9.1 gm/dL (13.0-16.0); MEAN CORPUSCULAR HEMOGLOBIN 27.1 PG (28-34); MEAN CORPUSCULAR HGB CONC 33.5 g/dL (30-36); MEAN PLATELET VOLUME 8.5 FL (6.5-11.5); RED CELL DISTRIBUTION WIDTH 18.2 % (11.0-15.5); WHITE BLOOD COUNT 13.4 X10e3 (4.0-10.5)
[2016-06-29 06:04] LABS: CALCIUM SERUM 8.9 mg/dL (8.4-10.2); CREATININE SERUM 0.6 mg/dL (0.6-1.4); GLOM FILT RATE Estimated 129.4 mL/min (>60); POTASSIUM 3.7 mmol/L (3.5-5.1)
[2016-06-29 07:24] LABS: RED BLOOD COUNT 3.36 X10e (3.90-5.60)
[2016-06-30 08:45] LABS: HEMATOCRIT 27.2 % (38.0-50.0); MEAN CORPUSCULAR HGB CONC 32.9 g/dL (30-36); MEAN PLATELET VOLUME 8.4 FL (6.5-11.5); RED BLOOD COUNT 3.32 X10e (3.90-5.60); RED CELL DISTRIBUTION WIDTH 18.5 % (11.0-15.5); WHITE BLOOD COUNT 13.7 X10e3 (4.0-10.5)
[2016-06-30 09:21] LABS: BUN/CREATININE RATIO 16.25; CREATININE SERUM 0.8 mg/dL (0.6-1.4); POTASSIUM 3.8 mmol/L (3.5-5.1)
[2016-07-01 07:58] LABS: HEMOGLOBIN 9.1 gm/dL (13.0-16.0); MEAN CELL VOLUME 82.5 FL (83-96); MEAN CORPUSCULAR HEMOGLOBIN 26.7 PG (28-34); MEAN CORPUSCULAR HGB CONC 32.4 g/dL (30-36); MEAN PLATELET VOLUME 8.2 FL (6.5-11.5); RED BLOOD COUNT 3.4 X10e (3.90-5.60)
== END 2016-07-01 13:15 | disposition home or self-care (01) | DRG 193 ==
LOC: CED 13:17 → SEDOF 19:05 → CEDOF 19:53 → C3A PCU 06-24 17:36 → C4C 06-30 16:37
PROVIDERS: Emergency Medicine; General Practice; Internal Medicine; Internal Medicine Hematology; Internal Medicine Medical Oncology; Physician Assistant Medical
PROC: B32TYZZ Computerized Tomography (CT Scan) of Left Pulmonary Artery using Other Contrast (ICD-10-PCS; principal; 2016-06-23)
PROC: B32SYZZ Computerized Tomography (CT Scan) of Right Pulmonary Artery using Other Contrast (ICD-10-PCS; 2016-06-23)
DX: J18.9 Pneumonia, unspecified organism (principal); D57.00 Hb-SS disease with crisis, unspecified; J96.01 Acute respiratory failure with hypoxia; M87.851 Other osteonecrosis, right femur; E11.65 Type 2 diabetes mellitus with hyperglycemia; R65.10 Systemic inflammatory response syndrome (SIRS) of non-infectious origin without acute organ dysfunction; M87.852 Other osteonecrosis, left femur; M87.811 Other osteonecrosis, right shoulder; M87.812 Other osteonecrosis, left shoulder; J98.11 Atelectasis; Z79.84 Long term (current) use of oral hypoglycemic drugs; F17.210 Nicotine dependence, cigarettes, uncomplicated; N40.0 Benign prostatic hyperplasia without lower urinary tract symptoms; H53.461 Homonymous bilateral field defects, right side
CPT/HCPCS: 36415; 36600; 71010; 71275; 80048; 80053; 80076; 81003; 82308; 82550; 82553; 82607; 82728; 82803; 82947; 83036; 83540; 83550; 83605; 83615; 83735; 84484; 85025; 85027; 85044; 85610; 85730; 87040; 93005; 94640; 94760; 96361; 96365; 96367; 96372; 96375; 96376; 97162; 99291; G8978-GP; G8979-GP; G8980-GP; J0360; J0456; J0692; J0696; J1170; J1200; J1815; J2060; J2405; J2543; J2916; J3260; J3370; J3420; Q9967

== ENCOUNTER 2016-09-23 06:43 | Emergency (ER) | payer OTHER ==
--- NOTE | ~2016-09-23 | CR151 ---
[facility] A Service of [facility] RADIOLOGY TEXT RESULTS PATIENT: VIVIANA LEE LOCATION: [facility] : 56 UNIT #: [id number] AGE: [address]: Tim Brownlee MD SEX: M ORDER DR: [id number] [facility] [address] [place], [place] [address] [id number] E MR#: [id number] Acc #: [id number] NAME: VIVIANA LEE : 1960 SEX: M STUDY DATE/TIME: 09/23/2016 7:36 UNIT: [facility] ROOM: STUDY DESCRIPTION: CR Hip Min 2 Views Rt Attending Physician: Tim Brownlee M.D. Ordering Physician: Tim Brownlee M.D. Primary Care Physician: Guy Hawkins M.D. MEDICAL IMAGING REPORT This report is preliminary unless electronic signature is present EXAM Right hip, 09/23/2016 INDICATIONS Sickle cell disease, hip pain, symptoms began this morning. TECHNIQUE Two views of the right hip compared with 05/22/2016 FINDINGS Examination demonstrates subchondral sclerosis involving the femoral head on the right and on the left. There are additional mixed sclerotic and cystic changes in the proximal to mid shaft femur on the right. The patient has a history of sickle cell disease, and these features are characteristic of sickle cell disease and probable avascular necrosis of both femoral heads. There is no distinct evidence of femoral head collapse on either side at this time. Mild degenerative change of the symphysis pubis. No acute fracture. IMPRESSION No acute fracture. Imaging findings most characteristic of sequela of sickle cell disease with evidence of avascular necrosis of the femoral heads bilaterally. No interval femoral head collapse at this time. Dictated by... Florencio Pedersen M.D. THIS IS AN ELECTRONICALLY VERIFIED REPORT Florencio Pedersen M.D. at 09/23/2016 4:09 PM [facility] A Service of [facility] RADIOLOGY TEXT RESULTS PATIENT: VIVIANA LEE [facility] [id number] : [birth year] UNIT #: [id number] AGE: [address]: Tim Brownlee MD SEX: M ORDER DR: TD: 09/23/2016 15:07 JOB #: [id number] MEDICAL IMAGING REPORT Page 1 of 1 COPY
[~2016-09-23 06:43] MED LIST changes: +METOPROLOL TART25 MG PO
[2016-09-23 08:01] LABS: BASOPHIL# 0.1 X10e3 (0-0.3); BASOPHIL% 0.8 % (0-2.5); DIFF IND NO; EOSINOPHIL# 0.2 X10e3 (0-0.7); EOSINOPHIL% 2.3 % (0.0-7.0); HEMOGLOBIN 11.4 gm/dL (13.0-16.0); LYMPHOCYTE% 31.6 % (17.0-45.0); MEAN CELL VOLUME 80.6 FL (83-96); MEAN CORPUSCULAR HEMOGLOBIN 27.9 PG (28-34); MEAN CORPUSCULAR HGB CONC 34.6 g/dL (30-36); MEAN PLATELET VOLUME 8.4 FL (6.5-11.5); MONOCYTE# 1.1 X10e3 (0-1.0); MONOCYTE% 11.3 % (3.0-12.0); NEUTROPHIL# 5.1 X10e3 (1.5-7.1); PLATELET COUNT 277 X10e3 (140-420); RETICULOCYTE 3.3 % (0.5-2.8); WHITE BLOOD COUNT 9.4 X10e3 (4.0-10.5)
[2016-09-23 08:07] LABS: BILIRUBIN, DIRECT 0.1 mg/dL (0.0-0.2); BILIRUBIN,INDIRECT 1.4 mg/dL (0.0-0.9); BILIRUBIN,TOTAL 1.5 mg/dL (0.2-2.0); BUN/CREATININE RATIO 15.71; CREATININE SERUM 0.7 mg/dL (0.6-1.4); GLOM FILT RATE Estimated 121.5 mL/min (>60); POTASSIUM 3.5 mmol/L (3.5-5.1); PROTEIN TOTAL SERUM 6.9 g/dL (6.0-8.3)
== END 2016-09-23 08:35 | disposition home or self-care (01) ==
LOC: CED 06:43
PROVIDERS: Emergency Medicine
DX: D57.1 Sickle-cell disease without crisis (principal); I10 Essential (primary) hypertension
CPT/HCPCS: 36415; 73502; 80048; 80076; 85025; 85044; 96361; 96374; 96375; 99284; J1170; J1885